=== PATIENT | female | born 1950 | race Caucasian/White ===

== ENCOUNTER 2018-04-20 16:49 | Inpatient (IN) | payer MEDICARE, BC, OTHER ==
[~2018-04-20] VITALS: Ht 172.7 cm; Wt 63.5 kg
--- NOTE | 2018-04-20 20:24 | NUR ---
Admission Note Patient is a 67 year old female who presents to [facility] for medically supervised withdrawal from ETOH/Benzo and Opiate. Height is 5'8 and Weight is 140 lbs. Allergic to Latex. Body check done. Patient noted with skin tear on left forearm. Patient alert to self, able to state , she knows she's in the hospital but does not know the name and unsure of the date. Respiration even and unlabored. Lungs clear and abdomen soft and non-distended. Bowel sounds active. Last bowel movement today. Patient came in via wheelchair. Patient noted weak and unsteady. Patient states she uses walker at home. Patient with PMH of right knee replacement on Oct 2017, gastric bypass 20 years ago, Anxiety , Depression, Hypertension, GERD, Nerve pain, Chronic Muscle pain , Stomach ulcer and Hepatitis A (diagnosed when she was 5 years old). No Seizure history. No Involuntary Psych Hospitalization (5150) or Overdose. No history suicide attempt. No SI/HI. Patient requested to be full code and on regular diet at home. Patient was in [facility] 3-4 weeks ago due to failure to thrive. Patient states she had a fall yesterday because her right knee gave out and sustain skin tear on left forearm. She states had experienced blackouts and passing out but unable to tell why. Patient is seeking for treatment because "I want to quit the Alcohol and Fentanyl patch". Patient states she started using because of her bad knee, she also states that her son came to her house and states that they think that "I did not look good". Patient relapse because of the pain on her knee, Alcohol helps with the pain she states. Patient is retired and lives with her . Her sons and her are her support system. Substance History 1.Alcohol (red wine )-started drinking at age 14. Patient drinks 480-720 ml daily for a 6 months . Last drink was 480-720 ml on 04/19/18 . 2.Fentanyl 25 mcg patch every 3 days for a year (prescribed). Started using a year ago. Last use was 25 mcg patch on 04/18/18 3.Oxycodone 10/325 mg (prescribed) -started using a year ago. Patient takes 1 tab four times a day for a year. Last use was 2 tabs on 04/20/18 4.Xanax- started using a year ago. Patient takes 0.5 mg daily PRN for a year. Last use 0.5 mg on 04/20/18 Treatment history [facility] - couple years ago-stayed for a week. Patient states her longest period of sobriety was a year but doesn't remember when. Patient is poor historian and Son provided some information while in intake. Patient presents with soft speech, depressed mood, anxious, fearful, worried affect, delayed speech, confusion and bilateral hand tremors . COWS 8 and CIWA 7. Patient brought home medications. Patient was put on 1:1 for safety . Patient oriented to surroundings and how to use call light . Safety measures in place. Call light in reach. Will continue to monitor. Addendum: 04/21/18 at 0738 by CALI BECK LVN Clarification of Fentanyl Patient's son called and states that Patient had 1-2 patch of Fentanyl 25 mcg prior to admission.
--- NOTE | 2018-04-20 20:25 | NUR ---
Pre-admission assessment Patient is a 67-year old, female, seen at intake, AAOx1-2, no SOB and with anxiety noted. Patient appears tired and with delayed response to questions. Patient is surrounded by , 2 sons and 1 grandson. Patient observed to have low energy as well and is in depressed mood. Discussed with patient and family admission policies of the unit. Patient's and sons are the ones responding to questions if patient took a little more time to respond. Pt with weak gait, ambulates with wheelchair. Patient's son reports that patient takes Fentanyl, Percocet and unspecified amount of wine daily to which patient acknowledged to. Vital signs taken and as follows: TW=718/67, P=110, O2 sat on RA=95%, RR=16, T=97.7. Pt and family verbalized understanding to instructions and teachings regarding disposal of narcotic and other controlled home meds, unit protocols such as taking of vital signs Q4H and handling and disposal of contraband. Addendum: 04/21/18 at 0357 by KEVAN FUNG RN Time correction: Patient seen in intake at 2009
[2018-04-20] MEDS ORDERED: DOCU100C36 PO (21:27)
[2018-04-20] MEDS ORDERED: PANT40TA4 PO (21:27)
[2018-04-20] MEDS ORDERED: ALPR0.5T8 PO (21:27)
[2018-04-20] MEDS ORDERED: ARIP2TAB11 PO (21:27)
[2018-04-20] MEDS ORDERED: ONDA4TAB10 PO (21:27)
[2018-04-20] MEDS ORDERED: MULT-1095 PO (21:27)
[2018-04-20] MEDS ORDERED: SUCR1TAB PO (21:27)
[2018-04-20] MEDS ORDERED: AMIT10TA6 PO (21:27)
[2018-04-20] MEDS ORDERED: LEVO200T9 PO (21:27)
[2018-04-20] MEDS ORDERED: SENN1TAB28 PO (21:27)
[2018-04-20] MEDS ORDERED: NEOM28.37 TP (21:27)
[2018-04-20] MEDS ORDERED: [UNRECOGNIZED DRUG - CODE] TP (21:27)
[2018-04-20] MEDS ORDERED: GABA-534 PO (21:27)
[2018-04-20] MEDS ORDERED: METH750T3 PO (21:27)
[2018-04-20] MEDS ORDERED: OXYC-133 PO (21:27)
[2018-04-20] MEDS ORDERED: DULO60CA63 PO (21:27)
[2018-04-20] MEDS ORDERED: MELO-107 PO (21:27)
[2018-04-20] MEDS ORDERED: CYAN10006 IM (21:27)
[2018-04-20] MEDS ORDERED: FENT1PAT3 TD (21:27)
[2018-04-20] MEDS ORDERED: LOSA50TA21 PO (21:27)
[2018-04-20] MEDS ORDERED: BISA5TAB13 PO (21:27)
[2018-04-20] MEDS ORDERED: MULT-1176 PO (21:27)
[2018-04-20] MEDS ORDERED: DICYCLOMINE HCL 20 MG TABLET PO PRN (21:30)
[2018-04-20] MEDS ORDERED: MIRALAX 17 GM POWD.PACK PO PRN (21:30)
[2018-04-20] MEDS ORDERED: MAG HYDROX/AL HYDROX/SIMETH 30 ML LIQUID UDC PO PRN (21:30)
[2018-04-20] MEDS ORDERED: 5 DAY TAPER BUPRENORPHINE -SERENITY PROTOCOL SL PRN (21:30)
[2018-04-20] MEDS ORDERED: ONDANSETRON 4 MG/2 ML VIAL IM PRN (21:30)
[2018-04-20] MEDS ORDERED: BUPRENORPHINE HCL 2 MG TAB.SUBL SL PRN (21:30)
[2018-04-20] MEDS ORDERED: CLONIDINE HCL 0.1 MG TABLET PO PRN (21:30)
[2018-04-20] MEDS ORDERED: THIAMINE HCL 200 MG/2 ML VIAL IM ONE (21:30)
[2018-04-20] MEDS ORDERED: LORAZEPAM 2 MG/1 ML VIAL IM PRN (21:30)
[2018-04-20] MEDS ORDERED: MAGNESIUM HYDROXIDE 30 ML LIQUID UDC PO PRN (21:30)
[2018-04-20] MEDS ORDERED: ONDANSETRON ODT 4 MG TAB.RAPDIS SL PRN (21:30)
[2018-04-20] MEDS ORDERED: LOPERAMIDE HCL 2 MG CAPSULE PO PRN ×2 (21:30)
[2018-04-20] MEDS ORDERED: DIAZEPAM 5 MG TABLET PO PRN (21:30)
[2018-04-20] MEDS ORDERED: 5 DAY TAPER VALIUM-SERENITY PROTOCOL PO PRN (21:30)
[2018-04-20] MEDS ORDERED: DIAZEPAM 10 MG TABLET PO PRN ×2 (21:30)
[2018-04-20 22:12] LABS: *AMPHETAMINE, URINE NEGATIVE (NEGATIVE); *BARBITURATE, URINE NEGATIVE (NEGATIVE); *CANNABINOID, URINE NEGATIVE (NEGATIVE); *COCCAINE, URINE NEGATIVE (NEGATIVE); *OPIATE, URINE POSITIVE (NEGATIVE); *PHENCYCLIDINE SCREEN,URINE NEGATIVE (NEGATIVE)
[2018-04-20 22:58] LABS: BASOPHILS # (AUTO) 0.1 K/uL (0.0-8.0); BASOPHILS % (AUTO) 0.5 % (0.0-2.0); EOSINOPHILS # (AUTO) 0.2 K/uL (0.0-0.7); EOSINOPHILS % (AUTO) 1.6 % (0.0-7.0); HEMOGLOBIN 13.8 g/dL (10.9-14.3); LYMPHOCYTES # (AUTO) 1.3 K/uL (20.0-40.0); LYMPHOCYTES % (AUTO) 12.4 % (20.5-51.5); MEAN CORPUSCULAR HEMOGLOBIN 38.2 uug (24.7-32.8); MEAN CORPUSCULAR HGB CONC 35 g/dL (32.3-35.6); MEAN CORPUSCULAR VOLUME 110.6 fL (75.5-95.3); MONOCYTES # (AUTO) 0.8 K/uL (2.0-10.0); NEUTROPHILS # (AUTO) 8.1 K/uL (1.8-8.9); NEUTROPHILS % (AUTO) 77.5 % (38.5-71.5); PLATELET COUNT (AUTO) 92 K/uL (179-408); RED BLOOD CELL COUNT(AUTO) 3.62 MIL/uL (3.63-4.92); WHITE BLOOD COUNT (AUTO) 10.5 K/uL (3.8-11.8)
[2018-04-20 23:14] LABS: ALANINE AMINOTRANSFERASE 47 U/L (14-59); ALKALINE PHOSPHATASE 141 U/L (50-136); AMYLASE 22 U/L (25-115); ASPARTATE AMINOTRANSFERASE 39 U/L (15-37); BILIRUBIN,TOTAL 0.7 mg/dL (0.2-1.0); CARBON DIOXIDE 26 mmol/L (21-32); CHLORIDE 102 mmol/L (98-107); ETHANOL < 3 MG/DL (0-0); GLUCOSE 84 mg/dL (74-106); LIPASE 49 U/L (73-393); MAGNESIUM 1.9 mg/dL (1.8-2.4); POTASSIUM 4.3 mmol/L (3.5-5.1); TOTAL PROTEIN, SERUM 5.9 g/dL (6.4-8.2); UREA NITROGEN, BLOOD 15 mg/dL (7-18)
[2018-04-20 23:23] LABS: THYROID STIMULATING HORMONE 0.079 mIU/mL (0.358-3.740)
[2018-04-21] VITALS: BP 132/87
--- NOTE | 2018-04-21 | NUR ---
COWS and CIWA deferred Patient lying in bed with eyes closed. Respiration even and unlabored. Will continue to monitor.
[2018-04-21 00:03] LABS: EOSINOPHILS % (MANUAL) 1 % (0-8); LYMPHOCYTES % (MANUAL) 9 % (20-40); MONOCYTES % (MANUAL) 4 % (2-10); NEUTROPHILS % (MANUAL) 86 % (42-75)
[2018-04-21 04:00] VITALS: BP 147/75
[2018-04-21] MEDS: METHOCARBAMOL 750 MG TABLET PO PRN ×2 (04:37→19:50)
--- NOTE | 2018-04-21 04:37 | NUR ---
PRN Robaxin administration Patient c/o right knee pain. Will continue to monitor.
--- NOTE | 2018-04-21 05:37 | NUR ---
DAVID Candelario re-assessment Patient lying in bed with eyes closed. No facial grimacing. Respiration even and unlabored. Will continue to monitor
--- NOTE | 2018-04-21 07:25 | NUR ---
Start of Shift Pt. is a newly admitted 67 y/o female. Pt. is here for the medically managed withdrawal from ETOH, Opiates, and Benzodiazepines. Pt. is scheduled to begin her 5 day Valium and 5 day Subutex this am. Pt. was A/O X 2 during the admission process and was noted to have gross tremors. Endorse from previous shift that pt. presented with anxiety and a flat affect. Received pt. in her room sitting up in bed. Pt. presented with a flat affect and restlessness. Encouraged pt. to verbalize concerns and emotions. Pt. is on a 1:1 for safety due to an unsteady gait and a recent Hx of multiple falls. Pt. educated on her treatment plan and medication regiment for the day. Pt. verbalize understanding. Pt. is currently A/O X 4 but has periods of forgetfulness. Last COWs 8 and CIWA of 7. No PRNs given during previous shift. Safety measures in place. Will continue to monitor pt.s behavior for safety.
--- NOTE | 2018-04-21 07:35 | NUR ---
End of shift note Patient slept 7 hours. Fluid intake 250 ml. Voided x 1. No. Patient alert and oriented x 2. Patient on 1:1 for safety due to unsteady and weak gait. Patient refused B1 injection. Patient presented with soft speech, depressed mood, anxious, fearful, worried affect, delayed speech, confusion and bilateral hand tremors . Patient was given PRN Robaxin. Safety measures in place. Call light in reach. Will continue to monitor. Last COWS 8 and CIWA 7.
[2018-04-21 08:00] VITALS: BP 114/71
--- NOTE | 2018-04-21 08:00 | NUR ---
COW/CIWA Assessment COW's 12/CIWA 17. Pt. presents with tremors gross and fine, anxiety, and restlessness. Pt. reports chills and mild body aches. Pt. will be given her initial doses of Subutex and Valium this AM. Will continue to monitor pt.'s behavior for safety.
[2018-04-21] MEDS ORDERED: TUBERCULIN,PURIF.PROT.DERIV. 5 TU/0.1 ML TEST ID ONE (09:00)
[2018-04-21] MEDS: THIAMINE HCL 100 MG TABLET PO SCH (09:40)
[2018-04-21] MEDS: MULTIVITAMINS,THERAPEUTIC TABLET PO SCH (09:40)
[2018-04-21] MEDS: FOLIC ACID 1 MG TABLET PO SCH (09:40)
[2018-04-21] MEDS: DIAZEPAM 10 MG TABLET PO SCH ×4 (09:40→20:47)
[2018-04-21] MEDS: BUPRENORPHINE HCL 2 MG TAB.SUBL SL SCH ×4 (09:41→20:47)
--- NOTE | 2018-04-21 10:30 | NUR ---
Substance use update: Pt. states that she uses her Xanax as prescribed only and does not abuse the substance. She states she takes it about 4 times a week and only once a day. Pt. reports that the medication is too strong and it always make her sleep after consuming it. So, she does not take more than one when she feels anxious.
[2018-04-21] MEDS ORDERED: METHOCARBAMOL 750 MG TABLET PO PRN (11:00)
[2018-04-21] MEDS ORDERED: SENNOSIDES/DOCUSATE SODIUM TABLET PO PRN (11:00)
[2018-04-21] MEDS ORDERED: NEOMY/BACITRAC/POLYMI OINT 28.35 GM TUBE TP PRN (11:00)
[2018-04-21] MEDS ORDERED: SUCRALFATE 1 G TABLET PO SCH (11:00)
[2018-04-21] MEDS ORDERED: DOCUSATE SODIUM 100 MG CAPSULE PO SCH (11:00)
[2018-04-21] MEDS ORDERED: Medication Not On Formulary EA (Meloxicam 15 MG) PO SCH (11:00)
[2018-04-21] MEDS: LEVOTHYROXINE SODIUM 200 MCG TABLET PO SCH (11:53)
[2018-04-21] MEDS: LOSARTAN POTASSIUM 50 MG TABLET PO SCH (11:53)
[2018-04-21] MEDS: GABAPENTIN 300 MG CAPSULE PO SCH ×3 (11:53→16:02)
[2018-04-21] MEDS: SUCRALFATE 1 G TABLET PO SCH ×3 (11:53→20:47)
[2018-04-21] MEDS: PANTOPRAZOLE SODIUM 40 MG TABLET.DR PO SCH (11:58)
[2018-04-21 12:00] VITALS: BP 131/78
--- NOTE | 2018-04-21 12:00 | NUR ---
COW/CIWA Assessment COW's 11/CIWA 15. Pt. presents with tremors gross and fine, anxiety, and restlessness. Pt. reports chills, some nausea and mild body aches. Pt. compliant with her medication regiment. Will continue to monitor pt.'s behavior for safety.
--- NOTE | 2018-04-21 16:00 | NUR ---
COW/CIWA Assessment COW's 13/CIWA 15. Pt. presents with tremors gross and fine, anxiety, and restlessness. Pt. reports chills, constant nausea and mild body aches. Gave pt. her taper doses of Valium, Subutex and gave her a PRN Zofran for nausea. Will continue to monitor pt.'s behavior for safety.
[2018-04-21] MEDS: SENNOSIDES/DOCUSATE SODIUM TABLET PO SCH (16:02)
[2018-04-21] MEDS: ONDANSETRON HCL 4 MG TABLET PO PRN ×3 (16:08→17:19)
[2018-04-21 16:43] VITALS: BP 114/75
--- NOTE | 2018-04-21 17:00 | NUR ---
PRN Re-Assessment Pt. denies any nausea at this time. Medication effective. Will continue to monitor pt.'s behavior for safety.
--- NOTE | 2018-04-21 18:12 | NUR ---
PRN Medication Pt. reports constant nausea at this time. Gave pt. P.Ashish Bettencourt at this time. Will continue to monitor pt. for medication effectiveness and safety. Addendum: 04/21/18 at 1814 by GRISEL DUKES RN Note entered at incorrect time. Pt. was given this medication at 1608.
--- NOTE | 2018-04-21 19:18 | NUR ---
End of Shift Pt. is a newly admitted 67 y/o female. Pt. is here for the medically managed withdrawal from ETOH, Opiates, and Benzodiazepines. Pt. began her 5 day Valium and 5 day Subutex this am. Pt. remained medication compliant throughout shift. Pt. remained A/O X 4 throughout shift. Pt. continually presented with, body aches, fine and gross motor tremors, restlessness, anxiety and a flat affect. Encouraged pt. to verbalize concerns and emotions. Pt. is on a 1:1 for safety due to an unsteady gait and a recent Hx of multiple falls. Physical therapy evaluated pt. today and gave her a walker for ambulation. Pt. was given PRN Zofran during shift to test department helper with withdrawal symptoms. Last COWs 13 and CIWA of 15 at 1600. Safety measures in place. Will endorse pt.s care to oncoming shift.
--- NOTE | 2018-04-21 19:19 | NUR ---
Start of shift note Received report from day shift nurse. Pt is a 67 yo female, A+Ox4, presenting to [facility] for ETOH/Benzo/Opiate withdrawal. Pt noted with restlessness, anxiety, and agitation. Pt has HX of Right knee SX, gastric bypass, anxiety, depression, HTN, GERD, stomach ulcer, nerve pain, and Hepatitis A which will be monitored during shift. Pt is on 1:1 sitter for unsteady gait. Pt is on 5 day Subutex and 5 day Valium tapers, tolerated well. Respirations even and unlabored. Will continue to monitor.
--- NOTE | 2018-04-21 19:52 | NUR ---
PRN Robaxin Pt c/o Right knee pain 04/30 and requested for PRN Robaxin. Medication given and tolerated well. Will reassess within 1 HR. Will continue to monitor.
--- NOTE | 2018-04-21 20:45 | NUR ---
PRN Robaxin Reassessment Medication effective. Pt expresses knee pain reduction to 3/10. No s/s of ASE noted at this time. Respirations even and unlabored. Will continue to monitor.
[2018-04-21 20:50] VITALS: BP 110/67
--- NOTE | 2018-04-21 20:50 | NUR ---
COWS and CIWA Assessment COWS: 12 and CIWA: 13. Pt noted with pulse 81-100, chills, sweats, restlessness, severe diffuse discomfort, stomach cramps, tremors, anxiety, agitation, and mild nausea. Respirations even and unlabored. Will continue to monitor.
[2018-04-21] MEDS: IBUPROFEN 400 MG TABLET PO PRN (23:31)
--- NOTE | 2018-04-21 23:33 | NUR ---
PRN Motrin Pt c/o right knee pain 5/10 and requested for PRN Motrin. Medication given and tolerated well. Will reassess within 1 HR. Will continue to monitor
--- NOTE | 2018-04-22 00:30 | NUR ---
PRN Motrin Reassessment Medication effective. Pt expresses reduction of right knee pain to 2/10. No s/s of ASE noted at this time. Respirations even and unlabored. Will continue to monitor.
--- NOTE | 2018-04-22 00:55 | NUR ---
V/S refused, COWS and CIWA deferred for sleep. Respirations even and unlabored. Will continue to monitor.
--- NOTE | 2018-04-22 04:30 | NUR ---
V/S refused, COWS and CIWA deferred for sleep. Respirations even and unlabored. Will continue to monitor.
[2018-04-22] MEDS: LEVOTHYROXINE SODIUM 200 MCG TABLET PO SCH (06:56)
[2018-04-22] MEDS: SUCRALFATE 1 G TABLET PO SCH ×4 (06:56→21:16)
[2018-04-22] MEDS: PANTOPRAZOLE SODIUM 40 MG TABLET.DR PO SCH (06:56)
--- NOTE | 2018-04-22 07:00 | NUR ---
End of shift note Pt was continuously noted with chronic pain, restlessness, agitation, and anxiety. Pt remained in room for entire shift. Pt remains on 1:1 observation for unsteady gait. Pt remained cooperative and compliant with all aspects of treatment. Pt was given PRN Robaxin @195 and PRN Motrin @3. Pt is on 5 day Subutex and 5 day Valium tapers, tolerated well. Pt slept for a total of 4 HRS. Last COWS: 12 and Last CIWA: 13 @1999. Respirations even and unlabored. Will endorse to day shift nurse.
--- NOTE | 2018-04-22 07:20 | NUR ---
Start of Shift Pt. is a 67 y/o female admitted for the medically managed withdrawal from ETOH and opiates. Pt. was placed on a 5 day Valium and a 5 day Subutex taper to manage withdrawal symptoms. Today is the pt.s second day of taper medications. Endorse from previous shift that pt. presented with restlessness, agitation, and anxiety along with continuously reporting pain. Pt. remains on a 1:1 for safety and unsteady gait. PRN Robaxin and Motrin given during previous shift. Received pt. in room. Pt. awake in sitting up in bed watching television. Pt. presents with a flat affect, tremors and anxiety. Educated pt. on today treatment plan for the day and medication regiment. Encourage pt. to verbalize concerns and emotions. Last COWs 12 and CIWA 13 at 1999. Safety measures in place. Will continue to monitor pt.s behavior for safety.
[2018-04-22 07:36] LABS: BASOPHILS % (AUTO) 0.5 % (0.0-2.0); EOSINOPHILS # (AUTO) 0.3 K/uL (0.0-0.7); HEMATOCRIT 37.2 % (31.2-41.9); HEMOGLOBIN 12.8 g/dL (10.9-14.3); LYMPHOCYTES % (AUTO) 18.9 % (20.5-51.5); MEAN CORPUSCULAR HEMOGLOBIN 38.3 uug (24.7-32.8); MEAN CORPUSCULAR HGB CONC 35 g/dL (32.3-35.6); MONOCYTES # (AUTO) 0.5 K/uL (2.0-10.0); MONOCYTES % (AUTO) 9.8 % (0.0-11.0); NEUTROPHILS # (AUTO) 3.5 K/uL (1.8-8.9); NEUTROPHILS % (AUTO) 64.8 % (38.5-71.5); PLATELET COUNT (AUTO) 243 K/uL (179-408); RED BLOOD CELL COUNT(AUTO) 3.35 MIL/uL (3.63-4.92); WHITE BLOOD COUNT (AUTO) 5.4 K/uL (3.8-11.8)
[2018-04-22 07:51] LABS: BILIRUBIN,TOTAL 0.6 mg/dL (0.2-1.0); CREATININE 0.9 mg/dL (0.6-1.3); POTASSIUM 4.1 mmol/L (3.5-5.1); TOTAL PROTEIN, SERUM 5.3 g/dL (6.4-8.2)
[2018-04-22 08:00] VITALS: BP 120/75
--- NOTE | 2018-04-22 08:00 | NUR ---
COW/CIWA Assessment COW's 11/CIWA 12. Pt. presents with fine tremors, diaphoresis, yawning, anxiety, and restlessness. Pt. reports chills, and mild body aches. Gave pt. her taper doses of Valium, Subutex and the rest of her medication regiment. Will continue to monitor pt.'s behavior for safety.
[2018-04-22] MEDS: THIAMINE HCL 100 MG TABLET PO SCH (08:07)
[2018-04-22] MEDS: DULOXETINE 60 MG CAPSULE.DR PO SCH (08:07)
[2018-04-22 08:08] LABS: EOSINOPHILS % (MANUAL) 7 % (0-8); LYMPHOCYTES % (MANUAL) 20 % (20-40); MONOCYTES % (MANUAL) 6 % (2-10); NEUTROPHILS % (MANUAL) 67 % (42-75)
[2018-04-22] MEDS: GABAPENTIN 300 MG CAPSULE PO SCH ×3 (08:08→16:06)
[2018-04-22] MEDS: BUPRENORPHINE HCL 2 MG TAB.SUBL SL SCH ×3 (08:08→21:16)
[2018-04-22] MEDS: DIAZEPAM 10 MG TABLET PO SCH ×3 (08:08→21:16)
[2018-04-22] MEDS: MULTIVITAMINS,THERAPEUTIC TABLET PO SCH (08:08)
[2018-04-22] MEDS: LOSARTAN POTASSIUM 50 MG TABLET PO SCH (08:08)
[2018-04-22] MEDS: FOLIC ACID 1 MG TABLET PO SCH (08:13)
[2018-04-22] MEDS: ARIPIPRAZOLE 2 MG TABLET PO SCH (08:13)
[2018-04-22] MEDS: AMITRIPTYLINE HCL 10 MG TABLET PO SCH ×2 (08:13→16:06)
[2018-04-22] MEDS: SENNOSIDES/DOCUSATE SODIUM TABLET PO SCH ×2 (08:14→16:06)
[2018-04-22] MEDS ORDERED: MELOXICAM 7.5 MG TABLET PO SCH (09:00)
[2018-04-22 09:11] LABS: HEPATITIS B SURFACE AG Negative (Negative)
[2018-04-22 12:00] VITALS: BP 110/77
[2018-04-22] MEDS: METHOCARBAMOL 750 MG TABLET PO PRN (12:00)
[2018-04-22] MEDS: IBUPROFEN 400 MG TABLET PO PRN (12:00)
--- NOTE | 2018-04-22 12:00 | NUR ---
PRN Medication Pt. complaining of body aches and knee pain at this time. Pt. in bed watching television and constantly shaking her right leg. Pt. was given PRN Motrin and Robaxin at this time. Will continue to monitor pt.'s behavior for medication effectiveness and safety.
--- NOTE | 2018-04-22 12:00 | NUR ---
COW/CIWA Assessment COW's 11/CIWA 12. Pt. presents with fine tremors, diaphoresis, yawning, anxiety, and restlessness. Pt. reports chills, right knee pain and body aches. Gave pt. her medication regiment and PRN Robaxin, and Motrin. Will continue to monitor pt.'s behavior for safety and medication effectiveness.
--- NOTE | 2018-04-22 12:35 | NUR ---
PRN Re-Assessment Pt. states her pain had diminished and currently rates it at a 3/10. Medication effective. Will continue to monitor pt. for safety.
--- NOTE | 2018-04-22 12:52 | NUR ---
PRN ZOFRAN im Vomit x1 food particles with complaints of nausea still. Zofran IM prn per MD order given and tolerated well.
--- NOTE | 2018-04-22 13:20 | NUR ---
PRN Re-Assessment Pt. reports being nausea free, and having no further episodes of emesis. Medication effective. Will continue to monitor pt. for safety.
[2018-04-22] MEDS: ONDANSETRON HCL 4 MG TABLET PO PRN (13:59)
[2018-04-22 16:00] VITALS: BP 121/74
--- NOTE | 2018-04-22 16:00 | NUR ---
COW/CIWA Assessment COW's 13/CIWA 15. Pt. presents with fine tremors, diaphoresis, nausea that included one episode of emesis, anxiety, and restlessness. Pt. reports chills, right knee pain and body aches. Gave pt. her medication regiment and PRN Zofran. Will continue to monitor pt.'s behavior for safety and medication effectiveness
--- NOTE | 2018-04-22 16:00 | NUR ---
PRN Medication Pt. laying in bed watching television. Pt. reports feelings of nausea but states " I just feel nauseas but not enough to feel like I'm going to throw up." Gave pt. PRN Zofran P.O. along side her scheduled medications. Will continue to monitor pt.'s behavior for safety, and medication effectiveness.
--- NOTE | 2018-04-22 17:00 | NUR ---
PRN Re-Assessment Pt. laying in bed and reports decreased levels of Nausea. Medication effective. Will continue to monitor pt.'s behavior for safety.
[2018-04-22] MEDS: LIDOCAINE 5% PATCH TD SCH (17:52)
--- NOTE | 2018-04-22 19:11 | NUR ---
End of Shift Pt. is a 67 y/o female admitted for the medically managed withdrawal from ETOH and opiates. Pt. was placed on a 5 day Valium and a 5 day Subutex taper to manage withdrawal symptoms. Throughout shift pt. presented with a flat affect, tremors, nausea, restlessness, poor memory, agitation, and anxiety along with continuously reporting pain. Pt. remains on a 1:1 for safety and unsteady gait. PRN Robaxin, Motrin, Zofran IM and Zofran P.O. given. Encourage pt. to verbalize concerns and emotions. Last COWs 13 and CIWA 15 at 1600. Safety measures in place. Will endorse pt.s care to oncoming shift.
--- NOTE | 2018-04-22 19:12 | NUR ---
Start of shift note Received report from day shift nurse. Pt is a 67 yo female, A+Ox4, presenting to [facility] for ETOH/Benzo/Opiate withdrawal. Pt noted with chronic right knee pain, agitation, anxiety, nausea, and restlessness. Pt has HX of Right knee SX, gastric bypass, anxiety, depression, HTN, GERD, stomach ulcer, nerve pain, chronic pain, and Hepatitis A which will be monitored during shift. Pt is on 5 day Valium and 5 day Subutex tapers, tolerated well. Respirations even and unlabored. Will continue to monitor.
[2018-04-22 20:12] VITALS: BP 131/81
--- NOTE | 2018-04-22 20:13 | NUR ---
COWS and CIWA Assessment COWS: 12 and CIWA: 12. Pt noted with pulse 81-100, chills, restlessness, severe diffuse discomfort, mild nausea, enlarged pupils, fine tremors, yawning, anxiety, and agitation. Respirations even and unlabored. Will continue to monitor.
[2018-04-23 00:59] VITALS: BP 126/78
--- NOTE | 2018-04-23 00:59 | NUR ---
COWS And CIWA Assessment COWS: 10 and CIWA: 11. Pt noted with pulse 81-100, chills, restlessness, enlarged pupils, mild diffuse discomfort, stomach cramps, fine tremors, yawning, anxiety, agitation, and nausea. Respirations even and unlabored. Will continue to monitor.
[2018-04-23] MEDS: METHOCARBAMOL 750 MG TABLET PO PRN (01:14)
[2018-04-23] MEDS: diphenhydrAMINE 50 MG CAPSULE PO PRN (01:14)
--- NOTE | 2018-04-23 01:14 | NUR ---
PRN Robaxin and Benadryl Pt c/o inability to sleep and right knee pain 8/10. PRN Benadryl and Robaxin given and tolerated well. Will reassess within 1 HR. Will continue to monitor.
--- NOTE | 2018-04-23 02:10 | NUR ---
PRN Benadryl and Robaxin Reassessment Medications effective. Pt expresses reduction in right knee pain to 4/10 and is resting well in bed. No s/s of ASE noted at this time. Respirations even and unlabored. Will continue to monitor.
--- NOTE | 2018-04-23 04:45 | NUR ---
V/S refused, COWS and CIWA deferred for sleep. Respirations even and unlabored. Will continue to monitor.
[2018-04-23] MEDS: IBUPROFEN 400 MG TABLET PO PRN (05:38)
--- NOTE | 2018-04-23 05:42 | NUR ---
PRN Motrin Pt c/o right knee pain 5/10. PRN Motrin given and tolerated well. Will reassess within 1 HR. Will continue to monitor.
--- NOTE | 2018-04-23 06:40 | NUR ---
PRN Motrin Reassessment Medication effective. Pt expresses reduction in right knee pain to 3/10. No s/s of ASE noted at this time. Respirations even and unlabored. Will continue to monitor.
[2018-04-23] MEDS: LEVOTHYROXINE SODIUM 200 MCG TABLET PO SCH (06:43)
[2018-04-23] MEDS: PANTOPRAZOLE SODIUM 40 MG TABLET.DR PO SCH (06:44)
[2018-04-23] MEDS: SUCRALFATE 1 G TABLET PO SCH ×4 (06:44→21:31)
--- NOTE | 2018-04-23 06:58 | NUR ---
End of shift note Pt was continuously noted with chronic pain, anxiety, agitation, and restlessness. Pt remained in room for entire shift. Pt remained cooperative and compliant with all aspects of treatment. Pt was given PRN Benadryl and Robaxin @0114 and PRN Motrin @0542. Pt is on 5 day Subutex and 5 day Valium tapers, tolerated well. Pt slept for a total of 5 HRS. Last COWS: 10 and Last CIWA: 11 @0000. Respirations even and unlabored. Will endorse to day shift nurse.
--- NOTE | 2018-04-23 07:30 | NUR ---
Start of Shift Notes: Received patient in her room with a 1:1 within arm's reach. Patient is alert and oriented x 4. Verbally responsive. Patient appears irritable, short to answer and agitated. She states "10 out of 10 pain is underrated." She complains of itching on her left forearm from the skin tear. Discouraged touching of the area to prevent infection. Patient is a 67 year old female admitted for opiate/ETOH and benzo withdrawal who was placed on a 5-day Valium and 5-day Subutex taper as ordered. No adverse reactions noted. Per night report, patient was given Benadryl, Robaxin and Motrin during the night. Slept for 5 hours. COWS 10/CIWA 11. Will continue to monitor.
[2018-04-23 08:00] VITALS: BP 129/79
[2018-04-23] MEDS: AMITRIPTYLINE HCL 10 MG TABLET PO SCH ×2 (08:23→21:31)
[2018-04-23] MEDS: THIAMINE HCL 100 MG TABLET PO SCH (08:24)
[2018-04-23] MEDS: SENNOSIDES/DOCUSATE SODIUM TABLET PO SCH ×2 (08:24→17:13)
[2018-04-23] MEDS: GABAPENTIN 300 MG CAPSULE PO SCH ×3 (08:24→17:13)
[2018-04-23] MEDS: ACETAMINOPHEN 325 MG TABLET PO PRN (08:24)
[2018-04-23] MEDS: FOLIC ACID 1 MG TABLET PO SCH (08:24)
[2018-04-23] MEDS: ARIPIPRAZOLE 2 MG TABLET PO SCH (08:24)
[2018-04-23] MEDS: DULOXETINE 60 MG CAPSULE.DR PO SCH (08:24)
--- NOTE | 2018-04-23 08:24 | NUR ---
LORELEI 17/CIWA 16/PRN Tylenol 650 mg PO give/MD Communication Patient presented with pulse elevation, facial flushing, restlessness, bone/joint aches, pupil dilation, nasal stuffiness, abdominal cramps, gross tremors, anxiety, agitation, intermittent perspiration, headache, paresthesia and anhedonia. She is noted to complain of 710 pain at this time on her legs. Medicated patient with Tylenol 650 mg PO as ordered. Will monitor for effectiveness. Notified MD of patient's CIWA score. Addendum: 04/23/18 at 0856 by BRENDA CASTELLON LVN Clarification to patient's scores. LORELEI /JACOBY 15.
[2018-04-23] MEDS: LOSARTAN POTASSIUM 50 MG TABLET PO SCH (08:25)
[2018-04-23] MEDS: MULTIVITAMINS,THERAPEUTIC TABLET PO SCH (08:25)
[2018-04-23] MEDS: DIAZEPAM 5 MG TABLET PO SCH ×4 (08:25→21:31)
[2018-04-23] MEDS ORDERED: BUPRENORPHINE HCL 2 MG TAB.SUBL SL SCH (09:00)
--- NOTE | 2018-04-23 09:05 | NUR ---
Transfer of Care: Care transferred to receiving nurse. All pertinent information discussed.
--- NOTE | 2018-04-23 09:06 | NUR ---
[employer] Courtesy Clerk received report on pt and assumed care of pt.
--- NOTE | 2018-04-23 09:24 | NUR ---
PRN Tylenol Assessment Pt reports her pain at 5/10, " I am able to sleep." Pt is lethargic and somnolent. Will continue to monitor, support and encourage according to plan of care.
--- NOTE | 2018-04-23 12:00 | NUR ---
CIWA 14/COWS 4 Pt is diaphoretic, anxious, restless, tremulous and complains of muscle sspasms and aches, nausea and irritability. Will continue to monitor, support and encourage according to plan of care.
[2018-04-23 12:41] VITALS: BP 120/77
--- NOTE | 2018-04-23 12:45 | NUR ---
Endorsement Entertainment Lawyer endorsed care of pt back to OPTICS TECHNICAL OFFICER. Pt has been calm and cooperative with copy writer, makes needs known. A/O x4. Pt is slow to process and has a flat affect and depressed mood. Pt with complaints of muscle aches and spasms. Pt is diaphoretic and anxious and restless.
--- NOTE | 2018-04-23 12:46 | NUR ---
Assumed Care: Assumed care for the patient at this time. All pertinent information discussed.
[2018-04-23] MEDS: BUPRENORPHINE HCL 2 MG TAB.SUBL SL SCH ×2 (14:09→21:31)
--- NOTE | 2018-04-23 14:20 | NUR ---
Communication: Change of Condition Patient was noted with increased confusion. She was unable to say the correct year, day of the week, and the month. She states "I'm here because of depression." Patient is noted with flat affect. Able to move all extremities freely with no difficulties noted. Facial features equal and symmetrical. Hand grasp strong and normal. VS 119/87, Pulse 114, Temp 98.1, RR19, PL 3/10. O2 sat at 98% via RA. Notified MD Sierra with new orders. Orders noted and carried out.
[2018-04-23 14:42] LABS: BASOPHILS % (AUTO) 0.5 % (0.0-2.0); EOSINOPHILS # (AUTO) 0.2 K/uL (0.0-0.7); EOSINOPHILS % (AUTO) 2.9 % (0.0-7.0); HEMOGLOBIN 12.3 g/dL (10.9-14.3); LYMPHOCYTES # (AUTO) 0.9 K/uL (20.0-40.0); LYMPHOCYTES % (AUTO) 12.4 % (20.5-51.5); MEAN CORPUSCULAR HGB CONC 34 g/dL (32.3-35.6); MEAN CORPUSCULAR VOLUME 111.2 fL (75.5-95.3); MONOCYTES # (AUTO) 0.7 K/uL (2.0-10.0); MONOCYTES % (AUTO) 9.8 % (0.0-11.0); NEUTROPHILS # (AUTO) 5.6 K/uL (1.8-8.9); NEUTROPHILS % (AUTO) 74.4 % (38.5-71.5); PLATELET COUNT (AUTO) 255 K/uL (179-408); RED BLOOD CELL COUNT(AUTO) 3.24 MIL/uL (3.63-4.92); WHITE BLOOD COUNT (AUTO) 7.5 K/uL (3.8-11.8)
[2018-04-23 14:58] LABS: CREATININE 0.9 mg/dL (0.6-1.3); POTASSIUM 4.5 mmol/L (3.5-5.1)
--- NOTE | 2018-04-23 15:30 | NUR ---
MD Communication: EKG results STAT EKG results shows "Normal Sinus Rhythm, anterior infarct, age undetermined, abnormal ECG." Per MD, do STAT Troponin and cardiac consult. MD is away from the computer and unable to enter orders. Orders noted and carried out.
[2018-04-23 16:00] VITALS: BP 122/89
[2018-04-23 16:32] LABS: *BILIRUBIN,URIN NEGATIVE (NEGATIVE); *BLOOD, URINE NEGATIVE (NEGATIVE); *CLARITY,URINE CLOUDY (CLEAR); *COLOR,URINE YELLOW (YELLOW); *KETONES,URINE NEGATIVE (NEGATIVE); *PROTEIN,URINE NEGATIVE (NEGATIVE); LEUKOCYTE ESTERASE ,URINE TRACE (NEGATIVE); NITRITE, URINE POSITIVE (NEGATIVE); UGLUCOSE NEGATIVE (NEGATIVE)
[2018-04-23 16:39] LABS: BACTERIA,URINE MANY /HPF (NONE SEEN); MUCUS,URINE FEW /LPF (0-FEW); RBC,URINE 0-3 /HPF (0-3); SQUAMOUS EPITHELIAL CELL,UR MODERATE /HPF (NONE SEEN)
--- NOTE | 2018-04-23 17:00 | NUR ---
COWS/CIWA Assessment: COWS 11/CIWA 17, patient continues to present with anxiety, restlessnes, agitation, irritability, confusion, myalgia, chills, hot flashes, intermittent perspiration, myalgia, and tachycardia. MD Sierra made aware. Will continue to monitor. Support provided. Offered PRNs.
[2018-04-23] MEDS: LIDOCAINE 5% PATCH TD SCH (17:13)
[2018-04-23 17:51] LABS: *BILIRUBIN,URIN NEGATIVE (NEGATIVE); *BLOOD, URINE NEGATIVE (NEGATIVE); *COLOR,URINE YELLOW (YELLOW); *KETONES,URINE NEGATIVE (NEGATIVE); *PROTEIN,URINE NEGATIVE (NEGATIVE); LEUKOCYTE ESTERASE ,URINE TRACE (NEGATIVE); NITRITE, URINE POSITIVE (NEGATIVE); PH,URINE 5.5 (5.0-8.0); UGLUCOSE NEGATIVE (NEGATIVE)
[2018-04-23 17:59] LABS: *CLARITY,URINE HAZY (CLEAR)
--- NOTE | 2018-04-23 18:00 | NUR ---
MD Visit: MD Tilley (cardiology) came and evaluated the patient with NNO at this time. Per MD, wait for echocardiogram results.
[2018-04-23 18:01] LABS: BACTERIA,URINE MANY /HPF (NONE SEEN); MUCUS,URINE FEW /LPF (0-FEW); SQUAMOUS EPITHELIAL CELL,UR FEW /HPF (NONE SEEN)
--- NOTE | 2018-04-23 19:03 | NUR ---
End of Shift Notes: Patient continues to be on 5-day Subutex and 5-day Valium as ordered. No adverse reactions noted. VS monitored closely. No significant abnormalities noted. BP monitored closely due to Dx of HTN. Withdrawal symptoms were closely monitored. Initial 18 15, patient presented with facial flushing, tachycardia, confusion, myalgia, bone/joint aches, rubbing legs due to muscle pain, abdominal cramping, paresthesia, headache, and anhedonia. Oral fluids encouraged. Continues to be on 1:1 for unsteady gait. Patient was noted with periods of confusion during the day. Not being able to remember where she is, the year, and the day. MD aware. STAT EKG, UA with C&S, and labs ordered. COWS 17. Unable to participate in group and activities due to her withdrawal symptoms. All needs met and attended. Will continue to monitor closely.
--- NOTE | 2018-04-23 19:11 | NUR ---
Start of shift note Received report from day shift nurse. Pt is a 67 yo female, A+Ox2, presenting to [facility] for ETOH/Benzo/Opiate withdrawal. Pt noted to be confused, anxious, agitated, and restless. Pt has HX of right knee SX, gastric bypass, anxiety, depression, HTN, GERD, chronic pain, stomach ulcer, and Hepatitis A which will be monitored during shift. Pt is on 1:1 sitter for unsteady gait and confusion/safety. Pt is on 5 day Subutex and 5 day Valium tapers, tolerated well. Respirations even and unlabored. Will continue to monitor.
[2018-04-23 20:10] VITALS: BP 115/61
--- NOTE | 2018-04-23 20:10 | NUR ---
COWS and CIWA Assessment COWS: 10 and CIWA: 13. Pt noted with pulse 99, flushed face, sweat on forehead, restlessness, enlarged pupils, fine tremors, yawning, anxiety, agitation, and itchiness. Respirations even and unlabored. Will continue to monitor.
[2018-04-23] MEDS: SULFAMETH/TRIMETH 800/160 MG TABLET PO SCH (21:31)
--- NOTE | 2018-04-24 00:58 | NUR ---
V/S refused, COWS and CIWA deferred fro sleep. Respirations even and unlabored. Will continue to monitor.
[2018-04-24] MEDS: METHOCARBAMOL 750 MG TABLET PO PRN (04:44)
--- NOTE | 2018-04-24 04:44 | NUR ---
PRN Robaxin Pt c/o right knee pain 04/30 and requested for PRN Robaxin. Medication given and tolerated well. Will reassess within 1 HR. Will continue to monitor.
[2018-04-24 04:50] VITALS: BP 129/72
--- NOTE | 2018-04-24 04:50 | NUR ---
COWS and CIWA Assessment COWS: 12 and CIWA: 10. Pt noted with pulse 88, flushed face, restlessness, severe diffuse discomfort to right knee 8/10, fine tremors, yawning, anxiety, agitation, sweat on forehead, and itchiness. Respirations even and unlabored. Will continue to monitor.
--- NOTE | 2018-04-24 05:40 | NUR ---
PRN Robaxin Reassessment Medication effective. Pt expresses reduction in knee pain to 4/10. No s/s of ASE noted at this time. Respirations even and unlabored. Will continue to monitor.
--- NOTE | 2018-04-24 06:58 | NUR ---
End of shift note Pt was continuously noted with restlessness, anxiety, agitation, and chronic pain. Pt remained in room for entire shift. Pt remained cooperative and compliant with all aspects of treatment. Pt remains on 1:1 sitter for unsteady gait. Pt was given PRN Robaxin @0444. Pt is on 5 day Subutex and 5 day Valium tapers, tolerated well. Pt slept for a total of 9 HRS. Last COWS: 12 and Last CIWA: 10 @0400. Respirations even and unlabored. Will endorse to day shift nurse.
[2018-04-24 07:11] LABS: BASOPHILS % (AUTO) 0.5 % (0.0-2.0); EOSINOPHILS # (AUTO) 0.2 K/uL (0.0-0.7); EOSINOPHILS % (AUTO) 4.6 % (0.0-7.0); HEMATOCRIT 35.3 % (31.2-41.9); HEMOGLOBIN 12.1 g/dL (10.9-14.3); LYMPHOCYTES # (AUTO) 1.2 K/uL (20.0-40.0); LYMPHOCYTES % (AUTO) 24.3 % (20.5-51.5); MEAN CORPUSCULAR HEMOGLOBIN 37.7 uug (24.7-32.8); MEAN CORPUSCULAR HGB CONC 34 g/dL (32.3-35.6); MEAN CORPUSCULAR VOLUME 110.1 fL (75.5-95.3); MONOCYTES # (AUTO) 0.7 K/uL (2.0-10.0); MONOCYTES % (AUTO) 13.8 % (0.0-11.0); NEUTROPHILS # (AUTO) 2.8 K/uL (1.8-8.9); NEUTROPHILS % (AUTO) 56.8 % (38.5-71.5); PLATELET COUNT (AUTO) 233 K/uL (179-408); RED BLOOD CELL COUNT(AUTO) 3.21 MIL/uL (3.63-4.92); WHITE BLOOD COUNT (AUTO) 4.9 K/uL (3.8-11.8)
[2018-04-24] MEDS: LEVOTHYROXINE SODIUM 200 MCG TABLET PO SCH (07:12)
[2018-04-24] MEDS: SUCRALFATE 1 G TABLET PO SCH ×4 (07:12→20:34)
[2018-04-24] MEDS: PANTOPRAZOLE SODIUM 40 MG TABLET.DR PO SCH (07:12)
[2018-04-24 07:57] LABS: EOSINOPHILS % (MANUAL) 4 % (0-8); LYMPHOCYTES % (MANUAL) 25 % (20-40); MONOCYTES % (MANUAL) 14 % (2-10); NEUTROPHILS % (MANUAL) 57 % (42-75)
--- NOTE | 2018-04-24 07:57 | NUR ---
Start of Shift Notes: Received patient in her room with a 1:1 within arm's reach. Patient is alert and verbally responsive. Patient with flat affect, short to answer, poor eye contact and stares at the wall while answering questions. 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 She states "I'm hungry where's the food?" Patient is a 67 year old female admitted for opiate/ETOH and benzo withdrawal who was placed on a 5-day Valium and 5-day Subutex taper as ordered. No adverse reactions noted. Patient was placed on Bactrim DS for UTI. Per night report, patient was given Robaxin during the night. Slept for 9 hours. COWS 12/CIWA 10. Will continue to monitor.
[2018-04-24 08:00] VITALS: BP 128/76
--- NOTE | 2018-04-24 08:00 | NUR ---
COWS/CIWA Assessment: COWS 13/CIWA 14, patient presented with anxiety, irritability, flat affect, confusion, gross tremors to BUE, unsteady gait, intermittent perspiration, facial flushing, chills and hot flashes, myalgia and nausea. Oral fluids encouraged. Will medicate patient as ordered.
[2018-04-24] MEDS: ARIPIPRAZOLE 2 MG TABLET PO SCH (08:53)
[2018-04-24] MEDS: MULTIVITAMINS,THERAPEUTIC TABLET PO SCH (08:53)
[2018-04-24] MEDS: DULOXETINE 60 MG CAPSULE.DR PO SCH (08:53)
[2018-04-24] MEDS: THIAMINE HCL 100 MG TABLET PO SCH (08:53)
[2018-04-24] MEDS: FOLIC ACID 1 MG TABLET PO SCH (08:53)
[2018-04-24] MEDS: DIAZEPAM 5 MG TABLET PO SCH ×3 (08:53→20:34)
[2018-04-24] MEDS: BUPRENORPHINE HCL 2 MG TAB.SUBL SL SCH ×3 (08:53→20:34)
[2018-04-24] MEDS: GABAPENTIN 300 MG CAPSULE PO SCH ×3 (08:53→16:42)
[2018-04-24] MEDS: SULFAMETH/TRIMETH 800/160 MG TABLET PO SCH (08:54)
[2018-04-24] MEDS: LOSARTAN POTASSIUM 50 MG TABLET PO SCH (08:54)
[2018-04-24] MEDS: SENNOSIDES/DOCUSATE SODIUM TABLET PO SCH ×2 (08:54→16:41)
--- NOTE | 2018-04-24 09:21 | NUR ---
Zofran 4 mg SL given: Patient complained of nausea. Able to tolerate PO intake. No emesis noted. Medicated patient with Zofran 4 mg SL as ordered. Will monitor for effectiveness. Tracey henrik given.
--- NOTE | 2018-04-24 10:21 | NUR ---
Re-assessment: Zofran Patient verbalizes relief from nausea. PRN Zofran was effective.
[2018-04-24 12:00] VITALS: BP 106/65
--- NOTE | 2018-04-24 12:46 | NUR ---
COWS/CIWA Assessment: COWS 12/CIWA 13, patient continues to present with s/s of withdrawal m/b gross tremors, intermittent perspirations, restless legs, fatigue, malaise, confusion, nausea, chills, hot flashes and myalgia. Will medicate patient as ordered. Support provided.
[2018-04-24 16:00] VITALS: BP 103/61
[2018-04-24] MEDS: LEVOFLOXACIN 500 MG TABLET PO SCH (16:42)
--- NOTE | 2018-04-24 16:45 | NUR ---
COWS/CIWA Assessment: COWS 11/CIWA 13, patient continues to present with irritability, restlessness, anxiety/agitation, gross tremors, diaphoresis and flat affect. She continues to be on 1:1 due to unsteady gait. Will continue to monitor. Support provided.
[2018-04-24] MEDS: LIDOCAINE 5% PATCH TD SCH (17:01)
--- NOTE | 2018-04-24 19:19 | NUR ---
End of Shift Notes: Patient continues to be on 5-day Subutex and 5-day Valium as ordered. No adverse reactions noted. VS monitored closely. No significant abnormalities noted. BP monitored closely due to Dx of HTN. Withdrawal symptoms were closely monitored. Initial 14, patient presented with facial flushing, tachycardia, confusion, myalgia, bone/joint aches, rubbing legs due to muscle pain, abdominal cramping, paresthesia, headache, and anhedonia, nausea, intermittent perspiration, restless legs, fatigue, malaise, and chills. Medicated patient with Zofran at 0921 for nausea with help. Oral fluids encouraged. Continues to be on 1:1 for unsteady gait. Last COWS . Unable to participate in group and activities due to her withdrawal symptoms. Appetite fair. All needs met and attended. Will continue to monitor closely.
--- NOTE | 2018-04-24 19:43 | NUR ---
START OF SHIFT NOTE Rcvd report from outgoing nurse. Pt is a 67 y/o female A/O to person, place, time, and purpose. Pt was admitted for medically supervised withdrawal from ETOH, Opioids, and Benzodiazepines. Pt is on day 4 of a 5 day Subutex and Valium taper. Pt has been presenting w/ blunt affect, depressed and withdrawn mood, lethargy, irritability, nausea, sweats, tremors, and loss of appetite. Pt has an unkempt and disheveled appearance and room. Pt has had episodes of confusion, but none w/in the last 24hrs. Pt was subsequently Dx w/ a UTI and was placed on Levaquin by the MD. Pt denies S/I and H/I. PRN Zofran was given in the morning for nausea w/o emesis, noted effective. Last CIWA 13 and COWS 11 @ 1600. Call light is within reach. Pt will continue to be monitored and needs met.
--- NOTE | 2018-04-24 20:00 | NUR ---
CIWA AND COWS ASSESSMENT CIWA 13 and COWS 13. Pt has been presenting w/ blunt affect, depressed and withdrawn mood, lethargy, irritability, nausea, sweats, tremors, and loss of appetite. Pt has an unkempt and disheveled appearance and room. V/S: T:97.7, P:94, RR:16, SPO2:95, BP:90/58.
[2018-04-24 20:05] VITALS: BP 90/58
[2018-04-24] MEDS: AMITRIPTYLINE HCL 10 MG TABLET PO SCH (20:40)
[2018-04-24] MEDS: diphenhydrAMINE 50 MG CAPSULE PO PRN (20:54)
--- NOTE | 2018-04-24 20:54 | NUR ---
PRN BENADRYL, CLONIDINE, AND TYLENOL ADMINISTRATION Benadyl 50mg, Clonidine 0.1mg, and Tylenol 650mg given for sleep, anixety, and kneed pain. Pt c/o anixety causing insomnia. Pt also c/o 6/10 knee pain. Will reassess pt in 1 hr.
[2018-04-24] MEDS: ACETAMINOPHEN 325 MG TABLET PO PRN (20:55)
--- NOTE | 2018-04-24 21:54 | NUR ---
PRN BENADRYL, CLONIDINE, AND TYLENOL REASSESSMENT Pt is in bed w/ her eyes closed. Pt's respirations are unlabored and even.
--- NOTE | 2018-04-25 | NUR ---
CIWA AND COWS DEFERRED Pt is in bed w/ her eyes closed. Pt's respirations are unlabored and even.
--- NOTE | 2018-04-25 04:01 | NUR ---
CIWA AND COWS DEFERRED Pt is in bed w/ her eyes closed. Pt's respirations are unlabored and even.
[2018-04-25] MEDS: LEVOTHYROXINE SODIUM 200 MCG TABLET PO SCH (06:55)
[2018-04-25] MEDS: SUCRALFATE 1 G TABLET PO SCH ×4 (06:55→20:10)
[2018-04-25] MEDS: PANTOPRAZOLE SODIUM 40 MG TABLET.DR PO SCH (06:55)
--- NOTE | 2018-04-25 07:20 | NUR ---
END OF SHIFT NOTE Endorsed pt to oncoming nurse. Pt is a 67 y/o female A/O to person, place, time, and purpose. Pt was admitted for medically supervised withdrawal from ETOH, Opioids, and Benzodiazepines. Pt completed day 4 of a 5 day Subutex and Valium taper. Pt has been presenting w/ blunt affect, depressed and withdrawn mood, lethargy, irritability, nausea, sweats, tremors, and loss of appetite. Pt has an unkempt and disheveled appearance and room. Pt has had episodes of confusion since her admittance, but none w/in the last 24hrs. Pt was subsequently Dx w/ a UTI and was placed on Levaquin by the MD. PRN Tylenol, Clonidine, and Benadryl were given for knee pain, anxiety, and for sleep, noted effective. Pts fluid intake was 850ml and she voided 2 times. Pt slept for 6 hrs. Last CIWA 13 and COWS 11 @ 1999. Call light is within reach.
--- NOTE | 2018-04-25 07:41 | NUR ---
Start of shift Pt is a 67 y/o female A/O to person, place, time, and purpose. Pt was admitted for medically supervised withdrawal from ETOH, Opioids, and Benzodiazepines. Pt completed day 4 of a 5 day Subutex and Valium taper. Last CIWA 13 and COWS 11 @ 1999. Pt presents w/ blunt affect, depressed and withdrawn mood, irritability, sweats, tremors, and loss of appetite. Pt c/o chronic knee right pain #7/10. Pt has an unkempt and disheveled appearance and room. Pt on 1:1 fopr safety and unsteady gait. Pt was Dx w/ a UTI and on scheduled. Last night PRN Tylenol, Clonidine, and Benadryl were given. Pt reports allergy to Latex, Full Code and regular diet. All safety measures in place. Bed low, locked position, side rails upx2, call light is within reach.
[2018-04-25 08:00] VITALS: BP 124/70
--- NOTE | 2018-04-25 08:00 | NUR ---
COWS 13, CIWA 17- PT PRESENTS WITH CHILLS, SWEATS, MUSCLE ACHES, INTERMITTENT NAUSEA, GROSS TREMORS, MODERATE ANXIETY, AND FINGER TIPS PINS AND NEEDLES.
[2018-04-25] MEDS: GABAPENTIN 300 MG CAPSULE PO SCH ×3 (08:45→15:57)
[2018-04-25] MEDS: HYDROXYZINE PAMOATE 25 MG CAPSULE PO PRN (08:45)
[2018-04-25] MEDS: IBUPROFEN 400 MG TABLET PO PRN ×2 (08:45→16:07)
[2018-04-25] MEDS: ARIPIPRAZOLE 2 MG TABLET PO SCH (08:45)
[2018-04-25] MEDS: MULTIVITAMINS,THERAPEUTIC TABLET PO SCH (08:45)
[2018-04-25] MEDS: THIAMINE HCL 100 MG TABLET PO SCH (08:46)
[2018-04-25] MEDS: DULOXETINE 60 MG CAPSULE.DR PO SCH (08:46)
[2018-04-25] MEDS: LOSARTAN POTASSIUM 50 MG TABLET PO SCH (08:46)
[2018-04-25] MEDS: DIAZEPAM 5 MG TABLET PO SCH ×2 (08:46→20:10)
[2018-04-25] MEDS: ACETAMINOPHEN 325 MG TABLET PO PRN ×2 (08:46→16:06)
[2018-04-25] MEDS: FOLIC ACID 1 MG TABLET PO SCH (08:46)
[2018-04-25] MEDS: SENNOSIDES/DOCUSATE SODIUM TABLET PO SCH ×2 (08:47→15:57)
[2018-04-25] MEDS: METHOCARBAMOL 750 MG TABLET PO PRN (08:48)
--- NOTE | 2018-04-25 08:51 | NUR ---
PRN MEDICATIONS MOTRIN 400 MG FOR BONE ACHES/RIGHT KNEE PAIN #7/- CHRONIC ROBAXIN 750 MG PO FOR GENERALIZED BODY ACHES TYLENOL 650 MG PO FOR CHRONIC RIGHT KNEE PAIN #7/10 VISTARIL 50 MG PO FOR MODERATE ANXIETY
[2018-04-25] MEDS ORDERED: BUPRENORPHINE HCL 2 MG TAB.SUBL SL SCH (09:00)
--- NOTE | 2018-04-25 09:50 | NUR ---
REASSESS MEDICATIONS- MOTRIN, ROBAXIN, TYLENOL, VISTARIL- PT ASLEEP, RESP EVEN AND UNLABORED. HOB UP 45 DEGREES. PT REMAINS ON 1:1 FOR SAFETY. SIDE RAILS UP X2.
--- NOTE | 2018-04-25 12:00 | NUR ---
COWS 14, CIWA 16- PT PRESENTS WITH CHILLS, SWEATS, MUSCLE ACHES, INTERMITTENT NAUSEA, GROSS TREMORS, MODERATE ANXIETY, AND FINGER TIPS PINS AND NEEDLES.
[2018-04-25 12:06] VITALS: BP 107/55
[2018-04-25 12:35] LABS: BASOPHILS % (AUTO) 0.8 % (0.0-2.0); EOSINOPHILS # (AUTO) 0.1 K/uL (0.0-0.7); EOSINOPHILS % (AUTO) 2.6 % (0.0-7.0); HEMATOCRIT 34.9 % (31.2-41.9); HEMOGLOBIN 12.2 g/dL (10.9-14.3); LYMPHOCYTES # (AUTO) 0.9 K/uL (20.0-40.0); LYMPHOCYTES % (AUTO) 15.3 % (20.5-51.5); MEAN CORPUSCULAR HEMOGLOBIN 38.1 uug (24.7-32.8); MEAN CORPUSCULAR HGB CONC 35 g/dL (32.3-35.6); MEAN CORPUSCULAR VOLUME 109.2 fL (75.5-95.3); MONOCYTES # (AUTO) 0.7 K/uL (2.0-10.0); MONOCYTES % (AUTO) 12.5 % (0.0-11.0); NEUTROPHILS # (AUTO) 3.8 K/uL (1.8-8.9); NEUTROPHILS % (AUTO) 68.8 % (38.5-71.5); PLATELET COUNT (AUTO) 230 K/uL (179-408); WHITE BLOOD COUNT (AUTO) 5.6 K/uL (3.8-11.8)
[2018-04-25 12:44] LABS: ALANINE AMINOTRANSFERASE 31 U/L (14-59); ALKALINE PHOSPHATASE 109 U/L (50-136); AMYLASE 27 U/L (25-115); ASPARTATE AMINOTRANSFERASE 34 U/L (15-37); BILIRUBIN,TOTAL 0.5 mg/dL (0.2-1.0); CARBON DIOXIDE 26 mmol/L (21-32); CHLORIDE 105 mmol/L (98-107); CREATININE 0.7 mg/dL (0.6-1.3); GLUCOSE 94 mg/dL (74-106); LIPASE 63 U/L (73-393); POTASSIUM 4.4 mmol/L (3.5-5.1); UREA NITROGEN, BLOOD 9 mg/dL (7-18)
[2018-04-25 12:52] LABS: THYROID STIMULATING HORMONE 0.029 mIU/mL (0.358-3.740)
[2018-04-25] MEDS: LEVOFLOXACIN 500 MG TABLET PO SCH (15:57)
[2018-04-25 16:00] VITALS: BP 106/58
--- NOTE | 2018-04-25 16:00 | NUR ---
COWS 14, CIWA 16- PT PRESENTS WITH CHILLS, SWEATS, MUSCLE ACHES, INTERMITTENT NAUSEA, GROSS TREMORS, MODERATE ANXIETY, AND FINGER TIPS PINS AND NEEDLES. PT REMAINS ISOLATIVE, DEPRESSED MOOD AND FLAT AFFECT.
--- NOTE | 2018-04-25 16:10 | NUR ---
PRN MEDICATIONS- IBUPROFEN 400 MG PO FOR CHRONIC RIGHT KNEE PAIN #7/10 TYLENOL 650 MG PO FOR CHRONIC RIGHT KNEE PAIN #7/10
--- NOTE | 2018-04-25 17:10 | NUR ---
REASSESS MEDICATION MOTRIN AND TYLENOL- PT REPORTS CHRONIC RIGHT KNEE PAIN #6/10. SLIGHTLY IMPROVED.
[2018-04-25] MEDS: LIDOCAINE 5% PATCH TD SCH (17:23)
--- NOTE | 2018-04-25 18:28 | NUR ---
End of shift Pt is a 67 y/o female A/O to person, place, time, and purpose. Pt was admitted for medically supervised withdrawal from ETOH, Opioids, and Benzodiazepines. Pt completed day 5 of a 5 day Subutex and Valium taper and tolerated well. Pt presents w/ poor insight, blunt affect, depressed and withdrawn mood. She is unkempt, uncombed hair, hoarding food and drinks, and many empty food wrappers in room. Pt is isolative, anxious, irritable, sweats, tremors, and loss of appetite. Pt c/o chronic knee right pain through out the day. Pt on 1:1 for safety and unsteady gait. Pt did ambulate around the unit with walker and min assist. She made 2 laps. PRN given today; Motrin, Robaxin, Tylenol, and Vistaril. Pt encouraged to participate in group activities and verbalize feelings. At 1600 last CIWA 16 and COWS 14. PO fluids 1255ml, voids x3. Pt reports allergy to Latex, Full Code and regular diet. All safety measures in place. Bed low, locked position, side rails upx2, call light is within reach. Will continue to monitor for withdrawal symptoms. Will endorse to PM shift.
--- NOTE | 2018-04-25 19:53 | NUR ---
START OF SHIFT NOTE Rcvd report from outgoing nurse. Pt is a 67 y/o female A/O to person, place, time, and purpose. Pt was admitted for medically supervised withdrawal from ETOH, Benzodiazepines, and Opiates. Pt is on 1:1 observation for unsteady gait and safety. Pt has been presenting w/ depressed and withdrawn mood, anxiety, flat affect, sweats, tremors, body aches, and disheveled appearance. Pt has been c/o chronic right knee pain 03/30. Pt has a skin tear on her left forearm that was present upon admission. The wound has been dressed and wrapped. PRN Motrin and Tylenol were given twice, noted effective. PRN Robaxin and Vistaril were also given, noted effective. Pt denies any S/I or H/I. Last CIWA 16 and COWS 14 @ 1600. Call light is within reach. Pt will continue to be monitored and needs met.
--- NOTE | 2018-04-25 20:00 | NUR ---
CIWA AND COWS ASSESSMENT CIWA 15 and COWS 14. Pt has been presenting w/ depressed and withdrawn mood, anxiety, flat affect, sweats, tremors, body aches, and disheveled appearance. Pt has remained isolated in her room for most of her stay. V/S: T:97.9, P:112, RR:16,SPO2:100, BP:93/49.
[2018-04-25 20:01] VITALS: BP 93/49
[2018-04-25] MEDS: diphenhydrAMINE 50 MG CAPSULE PO PRN (20:10)
[2018-04-25] MEDS: AMITRIPTYLINE HCL 10 MG TABLET PO SCH (20:10)
--- NOTE | 2018-04-25 20:10 | NUR ---
PRN BENADRYL ADMINISTRATION Benadryl 50mg given for sleep. Pt c/o insomnia. Will reassess pt in 1 hr.
--- NOTE | 2018-04-25 21:10 | NUR ---
PRN BENADRYL REASSESSMENT Pt is in bed w/ her eyes closed. Pt's respirations are unlabored and even.
--- NOTE | 2018-04-26 00:02 | NUR ---
CIWA AND COWS DEFERRED Pt is in bed w/ her eyes closed. Pt's respirations are unlabored and even.
--- NOTE | 2018-04-26 04:02 | NUR ---
CIWA AND COWS DEFERRED Pt is in bed w/ her eyes closed. Pt's respirations are unlabored and even.
[2018-04-26] MEDS: ACETAMINOPHEN 325 MG TABLET PO PRN ×2 (05:09→17:21)
--- NOTE | 2018-04-26 05:09 | NUR ---
PRN TYLENOL ADMINISTRATION Tylenol 650mg given. Pt c/o headache. Will reassess in 1 hr.
[2018-04-26] MEDS: LEVOTHYROXINE SODIUM 200 MCG TABLET PO SCH (06:54)
[2018-04-26] MEDS: PANTOPRAZOLE SODIUM 40 MG TABLET.DR PO SCH (06:54)
[2018-04-26] MEDS: SUCRALFATE 1 G TABLET PO SCH ×4 (06:54→20:46)
--- NOTE | 2018-04-26 07:20 | NUR ---
START OF SHIFT NOTE Rcvd report from outgoing nurse. Pt is a 67 y/o female A/O to person, place, time, and purpose. Pt was admitted for medically supervised withdrawal from ETOH, Benzodiazepines, and Opiates. Pt is on 1:1 observation for unsteady gait and safety. Pt has been presenting w/ depressed and withdrawn mood, anxiety, flat affect, sweats, tremors, body aches, and disheveled appearance. Pt has been c/o chronic right knee pain 12/29. Pt has a skin tear on her left forearm that was present upon admission. The wound has been dressed and wrapped. PRN Benadryl 50mg given for sleep and Tylenol 650mg given for headache, both noted effective. Pts fluid intake was 350ml and she voided 1 time. Pt slept for 8 hrs.. Last CIWA 15 and COWS 14 @ 1999. Call light is within reach.
--- NOTE | 2018-04-26 07:40 | NUR ---
START OF SHIFT Pt is a 67 yr old female, AA&Ox4. Pt was admitted on 04/20/18 for Benzo/ETOH/Opiate withdrawal and completed a 5 day Valium and 5 day Subutex taper as ordered. Medication calixto well. Received report from date night caregiver nurse. Pt received Benadryl PRN and Tylenol PRN during the night. Pt slept for 8 hrs. Last COWS score was 14 and CIWA score was 14. Pt is noted with flat affect. Pt is c/o anxiety, chills and sweats. Fine tremors are seen on BUE. Pt remains on 1:1 for unsteady gait. Pt was encouraged increase fluid intake for hydration. Safety precautions observed. Call light is within reach. Will continue to monitor.
[2018-04-26 08:00] VITALS: BP 109/56
--- NOTE | 2018-04-26 08:35 | NUR ---
COWS 9, AND CIWA 11 Pt is noted with flat affect, Pt is c/o anxiety, agitation, sweats, chills and left knee pain. Pt is noted with fine tremors on BUE. Pt was encouraged increase fluid intake for hydration. COWS score was 9 and CIWA score was 11. Will continue to f/u with eMAR
[2018-04-26] MEDS: DULOXETINE 60 MG CAPSULE.DR PO SCH (08:38)
[2018-04-26] MEDS: ARIPIPRAZOLE 2 MG TABLET PO SCH (08:38)
[2018-04-26] MEDS: FOLIC ACID 1 MG TABLET PO SCH (08:38)
[2018-04-26] MEDS: LOSARTAN POTASSIUM 50 MG TABLET PO SCH (08:39)
[2018-04-26] MEDS: IBUPROFEN 400 MG TABLET PO PRN ×2 (08:39→17:22)
--- NOTE | 2018-04-26 08:39 | NUR ---
PRN GIVEN Pt is c/o right knee pain 03/30. Motrin 400mg PO PRN was given as ordered. Encouraged increase fluid intake. Will continue to monitor.
[2018-04-26] MEDS: THIAMINE HCL 100 MG TABLET PO SCH (08:40)
[2018-04-26] MEDS: MULTIVITAMINS,THERAPEUTIC TABLET PO SCH (08:40)
[2018-04-26] MEDS: GABAPENTIN 300 MG CAPSULE PO SCH ×3 (08:40→17:21)
[2018-04-26] MEDS: SENNOSIDES/DOCUSATE SODIUM TABLET PO SCH ×2 (08:40→17:21)
--- NOTE | 2018-04-26 09:39 | NUR ---
PRN RE-ASSESSMENT Motrin PRN was effective. Pt states pain level subsided from a 7 to a 4/10. Will continue to monitor.
[2018-04-26 12:00] VITALS: BP 110/85
[2018-04-26] MEDS: LEVOFLOXACIN 500 MG TABLET PO SCH (15:45)
[2018-04-26 16:00] VITALS: BP 105/64
[2018-04-26] MEDS ORDERED: ACET325T53 PO (16:30)
[2018-04-26] MEDS ORDERED: LEVO500T2 PO (16:30)
[2018-04-26] MEDS ORDERED: AMIT10TA32 PO (16:30)
[2018-04-26] MEDS: LIDOCAINE 5% PATCH TD SCH (17:20)
[2018-04-26] MEDS: METHOCARBAMOL 750 MG TABLET PO PRN (17:21)
--- NOTE | 2018-04-26 17:26 | NUR ---
PRN GIVEN Pt c/o right knee pain 7/10, facial grimacing observed. Motrin 400mg PO PRN, Tylenol 650mg PO PRN and Robaxin 750mg PO PRN was given as ordered. Lidoderm Patch 5% was applied to right knee as scheduled for 1800. Encouraged increase fluid intake. Will continue to monitor.
--- NOTE | 2018-04-26 18:26 | NUR ---
PRN RE-ASSESSMENT Robaxin PRN, Tylenol PRN, and Robaxin PRN was effective. Pt states, "I feel much better" Will continue to monitor.
--- NOTE | 2018-04-26 18:41 | NUR ---
START OF SHIFT NOTE: Endorsed, 67 year old female, patient completed 5 day Valium and 5 day Subutex taper, ordered for Benzodiazepines, Alcohol, and Opioid withdrawal, and tolerated well. Withdrawal symptoms was closely monitored. The patient is alert and oriented x4, with soft and clear speech, ambulatory with unsteady gait. 1:1 sitter at bedside for safety/unsteady gait. Last COWS=9, CIWA=9 at 1600. Patient presented with withdrawal symptoms such as anxiety, agitation, sweating, restlessness, tremors, fatigue, and right knee pain. PRN Medications administrated during day shift were effective, per day shift nurse report. The patient remains compliant with treatment, medications, and diet regime. Encouraged to fluids intake as tolerated. Patient scheduled for discharging tomorrow to [facility]. Safe and calm environment with minimized noises was provided. All needs met. Safety measures: Call light within reach, bed locked in lowest position, padded bed rails up bilaterally. Patient endorsed by care outgoing day shift nurse. Will continue to monitor closely.
--- NOTE | 2018-04-26 18:41 | NUR ---
END OF SHIFT Pt is a 67 yr old female, AA&Ox4. Pt was admitted on 04/20/18 for Benzo/ETOH/Opiate withdrawal and completed a 5 day Valium and 5 day Subutex taper as ordered, medication was calixto well. Pt has been cooperative with medication regimen and plan of care. Pt was encouraged to attend group therapy but pt refused to attend. Pt is noted with flat affect and fine tremors on BUE. Pt was c/o anxiety, agitation, sweats, chills, restlessness and shakes and right knee pain. Skin is warm and moist to touch. Pt was given Motrin 400mg PO PRN at 0839 and at 1722, Tylenol 650mg PO PRN at 1722, and Robaxin 750mg PO PRN at 1722 for right knee pain. Medication was effective. Last COWS score was 9 and CIWA score was 9 at 1600. Pt was encouraged increase fluid intake for hydration. Pt remains on 1:1 for unsteady gait. Pt is to be discharged tomorrow to [facility]. Endorsed to night assistant nurse to continue with care.
[2018-04-26 20:00] VITALS: BP 126/78
--- NOTE | 2018-04-26 20:00 | NUR ---
COWS/CIWA ASSESSMENT COWS=9, CIWA=9 at 2000: The patient continues experienced withdrawal symptoms such as anxiety, agitation, nervousness, irritability, generalized body aches, tremors, that can be felt, not observe, barely sweating, clammy skin, restlessness, and fatigue. Safe and calm environment with minimized noises was provided. 1:1 sitter at bedside for safety/unsteady gait. All needs met. Safety measures: Call light within reach, bed locked in the lowest position, and padded rails up x2. Will continue to monitor closely. Will continue to monitor closely.
[2018-04-26] MEDS: AMITRIPTYLINE HCL 10 MG TABLET PO SCH (20:46)
[2018-04-26] MEDS: diphenhydrAMINE 50 MG CAPSULE PO PRN (20:46)
--- NOTE | 2018-04-26 20:46 | NUR ---
PRN BENADRYL 50 MG 1 CAPSULE PO ADMINISTRATION. PRN Benadryl 50 mg PO administrated for insomnia at 2045 with full glass of water, as ordered. Patient tolerated well. Safe and calm environment with minimized noises was provided. 1:1 sitter at bedside for safety/unsteady gait. All needs met. Safety measures: Call light within reach, bed locked in the lowest position, and padded rails up x2. Will continue to monitor closely. Will continue to monitor closely.
--- NOTE | 2018-04-26 21:46 | NUR ---
PRN BENADRYL PO RE-ASSESSMENT Patient is sleeping. RR: 16. Respirations even and unlabored. PRN Benadryl 50 mg PO administrated for insomnia at 2045 was effective. Safe and calm environment with minimized noises was provided. 1:1 sitter at bedside for safety/unsteady gait. All needs met. Safety measures: Call light within reach, bed locked in the lowest position, and padded rails up x2. Will continue to monitor closely.
[2018-04-27] VITALS: BP 96/52
--- NOTE | 2018-04-27 | NUR ---
COWS/CIWA ASSESSMENT COWS=8, CIWA=9 at 0000: The patient noted with anxiety, agitation, nervousness, irritability, slightly tremors, barely sweating, clammy skin, nasal congestion, restlessness, and fatigue. Safe and calm environment with minimized noises was provided. 1:1 sitter at bedside for safety/unsteady gait. All needs met. Safety measures: Call light within reach, bed locked in the lowest position, and padded rails up x2. Will continue to monitor closely.
[2018-04-27] MEDS: ACETAMINOPHEN 325 MG TABLET PO PRN (01:57)
[2018-04-27] MEDS: METHOCARBAMOL 750 MG TABLET PO PRN (01:57)
[2018-04-27] MEDS: HYDROXYZINE PAMOATE 25 MG CAPSULE PO PRN (01:57)
--- NOTE | 2018-04-27 01:57 | NUR ---
PRN TYLENOL 650 MG PO, PRN ROBAXIN 750 MG PO, PRN VISTARIL 25 MG PO ADMINISTRATION. PRN Tylenol 650 mg PO administrated for right knee pain "8/10"at 0157, PRN Robaxin 750 mg PO administrated for myalgia at 0157, and PRN Vistarill 50 mg PO administrated for anxiety at 0157, as ordered. Patient tolerated well. Safe and calm environment with minimized noises was provided. 1:1 sitter at bedside for safety/unsteady gait. All needs met. Safety measures: Call light within reach, bed locked in the lowest position, and padded rails up x2. Will continue to monitor closely.
--- NOTE | 2018-04-27 02:57 | NUR ---
PRN TYLENOL PO, PRN ROBAXIN PO, PRN VISTARIL PO RE-ASSESSMENT Patient is sleeping. RR: 14. Respirations even and unlabored. PRN Tylenol 650 mg PO administrated for right knee pain "8/10"at 0157, PRN Robaxin 750 mg PO administrated for myalgia at 0157, and PRN Vistaril 50 mg PO administrated for anxiety at 0157 were effective. Safe and calm environment with minimized noises was provided. 1:1 sitter at bedside for safety/unsteady gait. All needs met. Safety measures: Call light within reach, bed locked in the lowest position, and padded rails up x2. Will continue to monitor closely.
[2018-04-27 04:00] VITALS: BP 92/56
--- NOTE | 2018-04-27 04:00 | NUR ---
COWS/CIWA ASSESSMENT COWS=12, CIWA=12 at 0400: The patient noted with anxiety, agitation, nervousness, irritability, right knee pain "8/10", nasal congestion, sweating, tremors, and restlessness. 1:1 sitter at bedside for safety/unstable gait. Safe and calm environment with minimized noises was provided. All needs met. Safety measures in place: Call light within reach, bed is locked in lowest position, and padded bed rails up X2. Will continue to monitor closely.
[2018-04-27 04:09] LABS: TRIIODOTHYRONINE, FREE 3.4 pg/mL (2.0-4.4)
[2018-04-27] MEDS: IBUPROFEN 400 MG TABLET PO PRN (04:26)
--- NOTE | 2018-04-27 04:26 | NUR ---
PRN MOTRIN 400 MG PO ADMINISTRATION. PRN Motrin 400 mg PO administrated for right knee pain "8" at 0426. Patient tolerated well. 1:1 sitter at bedside for safety/unstable gait. Safe and calm environment with minimized noises was provided. All needs met. Safety measures in place: Call light within reach, bed is locked in lowest position, and padded bed rails up X2. Will continue to monitor closely.
--- NOTE | 2018-04-27 05:26 | NUR ---
PRN MOTRIN RE-ASSESSMENT Patient reports, "My right knee pain decreased to"6/10". Motrin help to me". PRN Motrin 400 mg PO administrated for right knee pain "8/10" at 0426 was effective. 1:1 sitter at bedside for safety/unstable gait. Safe and calm environment with minimized noises was provided. All needs met. Safety measures in place: Call light within reach, bed is locked in lowest position, and padded bed rails up X2. Will continue to monitor closely.
[2018-04-27] MEDS: SUCRALFATE 1 G TABLET PO SCH (06:30)
[2018-04-27] MEDS: PANTOPRAZOLE SODIUM 40 MG TABLET.DR PO SCH (06:30)
[2018-04-27] MEDS: LEVOTHYROXINE SODIUM 200 MCG TABLET PO SCH (06:30)
--- NOTE | 2018-04-27 07:00 | NUR ---
END OF SHIFT NOTE: The patient completed 5 day Valium and 5 day Subutex taper on 04/25/2018, ordered for Benzodiazepines, Alcohol, and Opioid withdrawal. She is tolerated well. Withdrawal symptoms was closely monitored. The patient is alert and oriented x4, with soft and clear speech, ambulatory with unsteady gait. 1:1 sitter at bedside for safety/unsteady gait. The patient appears with anxious mood and flat affect. Encouraged to express her feelings. Reassuring provided. Encouraged Relaxation Techniques: Deep breathing exercises, guided imagery, and visualization. The patient noted disheveled, unkempt, with uncombed hair. Encouraged to independently perform hygiene. Initial COWS=9, CIWA=9 at 2000, COWS=8, CIWA=9 at 0000. Last COWS=12, CIWA=12 at 0400. Throughout the shift supervisor rn patient presented with withdrawal symptoms such as anxiety, agitation, sweating, restlessness, tremors, fatigue, and right knee pain. PRN Benadryl 50 mg PO administrated for insomnia at 2046, PRN Tylenol 650 mg PO administrated for right knee pain "8/10"at 0157, PRN Robaxin 750 mg PO administrated for myalgia at 0157, PRN Vistaril 50 mg PO administrated for anxiety at 0157, PRN Motrin 400 mg PO administrated for right knee pain "8/10" at 0426, and were effective. Patient remains compliant with treatment, medications, and diet regime. Encouraged to fluids intake as tolerated. Patient scheduled for discharging today to [facility]. 1:1 sitter at bedside for safety/unstable gait. Calm and safety environment with minimized noises provided. Patient slept for 6 hours, intake 2,552 ml, voided x4, stool x1. Encouraged to fluid intake as tolerated. All needs met. Safety measures in the place: Call light within reach, bed in the lowest position and locked, padded rails up x2. Patient endorsed to day shift nurse.
--- NOTE | 2018-04-27 07:23 | NUR ---
START OF SHIFT Pt is a 67 yr old female, AA&Ox4. Pt was admitted on 04/20/18 for Benzo/ETOH/Opiate withdrawal and completed a 5 day Valium and 5 day Subutex taper as ordered. Medication calixto well. Received report from warehouse supervisor 3rd shift nurse. Pt received Benadryl PRN, Tylenol PRN, Robaxin PRN, Vistaril PRN and Motrin PRN during the night. Pt slept for 6 hrs. Last COWS score was 12 and CIWA score was 12. Pt is noted with flat affect. Pt is c/o anxiety, sweats and right knee pain. Fine tremors are seen on BUE. Pt remains on 1:1 for unsteady gait. Pt is to be discharged today to [facility]. Safety precautions observed. Call light is within reach. Will continue to monitor.
[2018-04-27 08:00] VITALS: BP 125/74
[2018-04-27 08:53] VITALS: BP 125/74
[2018-04-27] MEDS: THIAMINE HCL 100 MG TABLET PO SCH (08:53)
[2018-04-27] MEDS: DULOXETINE 60 MG CAPSULE.DR PO SCH (08:53)
[2018-04-27] MEDS: MULTIVITAMINS,THERAPEUTIC TABLET PO SCH (08:53)
[2018-04-27] MEDS: FOLIC ACID 1 MG TABLET PO SCH (08:53)
[2018-04-27] MEDS: SENNOSIDES/DOCUSATE SODIUM TABLET PO SCH (08:53)
[2018-04-27] MEDS: LOSARTAN POTASSIUM 50 MG TABLET PO SCH (08:53)
[2018-04-27] MEDS: GABAPENTIN 300 MG CAPSULE PO SCH (08:53)
[2018-04-27] MEDS: ARIPIPRAZOLE 2 MG TABLET PO SCH (08:53)
--- NOTE | 2018-04-27 09:40 | NUR ---
DISCHARGE NOTE Pt is a 67 yr old female, AA&Ox4. Pt was admitted on 04/20/18 for ETOH/Benzo/Opiate withdrawal and completed a 5 day Valium and 5 day Subutex taper as ordered. Pt has been cooperative with medication regimen and plan of care. Pt was noted with anxiety due to discharged but is able to cope with anxiety level. No SI/HI noted. Pt was educated on discharged summary and prescription. Pt was able to verbalize understand. Pt was off the unit at 0928 in stable condition and was discharged to [facility]. Pt left with all belongings and home medications.
== END 2018-04-27 09:28 | disposition other institution (70) | DRG 895 ==
LOC: SRC 19:15
PROVIDERS: ADMIT Family Medicine Addiction Medicine; ATTEND Family Medicine Addiction Medicine
PROC: HZ2ZZZZ Detoxification Services for Substance Abuse Treatment (ICD-10-PCS; principal; 2018-04-20)
PROC: HZ51ZZZ Individual Psychotherapy for Substance Abuse Treatment, Behavioral (ICD-10-PCS; 2018-04-22)
DX: F10.230 Alcohol dependence with withdrawal, uncomplicated (principal); N39.0 Urinary tract infection, site not specified; F11.23 Opioid dependence with withdrawal; Y90.0 Blood alcohol level of less than 20 mg/100 ml; D53.9 Nutritional anemia, unspecified; E03.9 Hypothyroidism, unspecified; Z79.899 Other long term (current) drug therapy; G89.29 Other chronic pain; Z98.84 Bariatric surgery status; Z96.651 Presence of right artificial knee joint; B96.20 Unspecified Escherichia coli [E. coli] as the cause of diseases classified elsewhere; F32.9 Major depressive disorder, single episode, unspecified; R00.0 Tachycardia, unspecified; R94.31 Abnormal electrocardiogram [ECG] [EKG]; R29.6 Repeated falls; I10 Essential (primary) hypertension; F41.9 Anxiety disorder, unspecified; F13.239 Sedative, hypnotic or anxiolytic dependence with withdrawal, unspecified
CPT/HCPCS: 36415; 70030-TC; 80307; 80346; 80361; 82746; 83690; 83735; 84443; 84479; 84480; 84481; 85025; 85651; 86580; 86592; 86705; 86803; 87077; 87086; 87340; 87806; 93005; 93307; C1758; G0480; J2405; Q0162; Q0163